=== PATIENT | female | born 1945 | race Two or more races ===

== ENCOUNTER 2018-02-24 11:07 | Inpatient (IN) | payer MEDICARE, MEDICAID ==
[~2018-02-24] VITALS: Ht 154.9 cm; Wt 81.6 kg
--- NOTE | 2018-02-24 11:11 | NUR ---
PT BIB FAMILY MEMBER C/O MIDSTERNAL CHEST PAIN RADIATING TO UPPER BACK. PT ON MONITOR IN BED 11. WILL CONTINUE TO MONITOR.
--- NOTE | 2018-02-24 11:40 | NUR ---
PHLEB AT BEDSIDE FOR LABS
[2018-02-24 11:47] LABS: BASOPHILS % (AUTO) 0.7 % (0.0-2.0); EOSINOPHILS % (AUTO) 1.3 % (0.0-6.0); HEMATOCRIT 37 % (33-45); HEMOGLOBIN 12.6 g/dL (11.5-14.8); LYMPHOCYTES # (AUTO) 1.3 /CMM (0.8-4.8); LYMPHOCYTES % (AUTO) 23.3 % (20.0-44.0); MEAN CORPUSCULAR HGB CONC 34 g/dl (31.0-36.0); MEAN CORPUSCULAR VOLUME 87 fL (82-100); MONOCYTES # (AUTO) 0.5 /CMM (0.1-1.30); MONOCYTES % (AUTO) 8.6 % (2.0-12.0); NEUTROPHILS # (AUTO) 3.6 /CMM (1.8-8.9); NEUTROPHILS % (AUTO) 66.1 % (43.0-81.0); PLATELET COUNT (AUTO) 261 /CMM (150-450); RED BLOOD CELL COUNT(AUTO) 4.28 MIL/uL (4.0-5.2); WHITE BLOOD COUNT (AUTO) 5.5 K/uL (4.3-11.0)
[2018-02-24 11:55] LABS: CALCIUM, SERUM 10.2 mg/dL (8.5-10.1); CARBON DIOXIDE 30 mmol/L (21-32); CHLORIDE 103 mmol/L (98-107); CREATININE 0.6 mg/dL (0.6-1.3); GLUCOSE 113 mg/dL (74-106); POTASSIUM 4.1 mmol/L (3.5-5.1); SODIUM SERUM 140 mmol/L (136-145); UREA NITROGEN, BLOOD 15 mg/dL (7-18)
--- NOTE | 2018-02-24 12:20 | NUR ---
CALLED [facility] FOR THIS PATIENT
--- NOTE | 2018-02-24 12:52 | NUR ---
CALLED NURSING SUP REQUESTED TELE BED FOR THIS PATIENT
[2018-02-24] MEDS ORDERED: CARV12.52 PO (13:51)
[2018-02-24] MEDS ORDERED: ROSU40TA PO (13:51)
[2018-02-24] MEDS ORDERED: CHOL200026 PO (13:51)
[2018-02-24] MEDS ORDERED: VALS1TAB4 PO (13:51)
--- NOTE | 2018-02-24 14:18 | NUR ---
GAVE REPORT TO ALVIN CONDE FOR NEY
--- NOTE | 2018-02-24 15:15 | NUR ---
PRODUCT SAFETY SPECIALIST NOTES RECEIVED PATIENT ALERT, ORIENTED X4 [place] SPEAKING. PATIENT DENIES ANY PAIN OR DISCOMFORT. PATIENT PLACED ON TELE SINUS RHYTHM. PATIENT ORIENTED TO ROOM. CALL LIGHT WITHIN REACH. DR. BABAR MALDONADO MADE AWARE OF PATIENTS ARRIVAL. AWAITING ORDERS WILL CONTINUE TO MONITOR.
[2018-02-24 16:00] VITALS: BP 128/73
[2018-02-24] MEDS ORDERED: ONDANSETRON HCL/PF 4 MG/2 ML VIAL IVP PRN (17:30)
[2018-02-24] MEDS ORDERED: ACETAMINOPHEN 325 MG TABLET PO PRN (17:30)
[2018-02-24] MEDS ORDERED: Z GUARD REMEDY 2 OZ OINT TP PRN (17:30)
[2018-02-24] MEDS ORDERED: ENOXAPARIN SODIUM 40 MG/0.4 ML DISP.SYRIN SQ SCH (17:30)
[2018-02-24] MEDS: IV NS 0.9% 1,000 ML IV PRN (17:55)
--- NOTE | 2018-02-24 18:27 | NUR ---
APPLICATION SYSTEMS ARCHITECT NOTES PATIENT AWAKE IN BED AND REMAINS IN STABLE CONDITION. NO C/O PAIN OR DISCOMFORT. PERIPHERAL IV RIGHT HAND INTACT AND PATENT. BED IN LOW LOCK POSITION. CALL LIGHT WITHIN REACH. WILL ENDORSE TO ONCOMING SHIFT.
--- NOTE | 2018-02-24 19:20 | NUR ---
BROADCAST DIRECTOR OPERATIONS OPENING NOTES RECEIVED PATIENT RESTING IN BED, ALERT, ORIENTED X4, [place] SPEAKING. PATIENT DENIES ANY PAIN OR DISCOMFORT. NO ACUTE DISTRESS NOTED. PATIENT ON TELE MONITORING WITH SINUS RHYTHM 82. BRP/AMBULATORY TOLERATED. IV ACCESS TO RIGHT HAND, INTACT PATENT, RUNNING WITH IVF ORDERED. BED IN LOW LOCKED POSITION. CALL LIGHT WITHIN REACH. INSTRUCTED THE PT TO CALL FOR HELP USING CALL LIGHT, VERBALIZED UNDERSTANDING. WILL CONTINUE TO MONITOR CLOSELY ACCORDINGLY.
[2018-02-24 20:00] VITALS: BP 154/87
[2018-02-24] MEDS ORDERED: ATORVASTATIN 40 MG TABLET PO SCH (22:00)
[2018-02-25] VITALS: BP 158/77
[2018-02-25 00:05] VITALS: BP 158/77
[2018-02-25 04:00] VITALS: BP 149/83
[2018-02-25] MEDS: IV NS 0.9% 1,000 ML IV PRN (06:19)
--- NOTE | 2018-02-25 06:26 | NUR ---
LEAD RECOVERER CLOSING NOTES PATIENT SLEPT INTERMITTENTLY AT NIGHT. ALERT, ORIENTED X4, [place] SPEAKING. PATIENT DENIES ANY PAIN OR DISCOMFORT. NO ACUTE DISTRESS NOTED. PATIENT ON TELE MONITORING WITH SINUS RHYTHM 77. NO C/O CHEST PAIN VERBALIZED AT NIGHT. BRP/AMBULATORY TOLERATED. IV ACCESS TO RIGHT HAND, INTACT PATENT, RUNNING WITH IVF ORDERED. BED IN LOW LOCKED POSITION. CALL LIGHT WITHIN REACH. WILL ENDORSE TO AM RN.
[2018-02-25 06:34] LABS: BASOPHILS % (AUTO) 0.6 % (0.0-2.0); EOSINOPHILS % (AUTO) 1.9 % (0.0-6.0); HEMATOCRIT 36 % (33-45); HEMOGLOBIN 12.2 g/dL (11.5-14.8); LYMPHOCYTES # (AUTO) 2.1 /CMM (0.8-4.8); LYMPHOCYTES % (AUTO) 35.1 % (20.0-44.0); MEAN CORPUSCULAR HGB CONC 34 g/dl (31.0-36.0); MEAN CORPUSCULAR VOLUME 89 fL (82-100); MONOCYTES # (AUTO) 0.5 /CMM (0.1-1.30); MONOCYTES % (AUTO) 8.9 % (2.0-12.0); NEUTROPHILS # (AUTO) 3.2 /CMM (1.8-8.9); NEUTROPHILS % (AUTO) 53.5 % (43.0-81.0); PLATELET COUNT (AUTO) 248 /CMM (150-450); RED BLOOD CELL COUNT(AUTO) 4.12 MIL/uL (4.0-5.2)
[2018-02-25 06:38] LABS: ALANINE AMINOTRANSFERASE 29 U/L (12-78); ALBUMIN 3.2 g/dL (3.4-5.0); ALKALINE PHOSPHATASE 94 U/L (46-116); ASPARTATE AMINOTRANSFERASE 18 U/L (15-37); BILIRUBIN,TOTAL 0.3 mg/dL (0.2-1.0); CALCIUM, SERUM 9.8 mg/dL (8.5-10.1); CARBON DIOXIDE 31 mmol/L (21-32); CHLORIDE 107 mmol/L (98-107); CREATININE 0.6 mg/dL (0.6-1.3); GLUCOSE 115 mg/dL (74-106); MAGNESIUM 1.6 mg/dL (1.8-2.4); PHOSPHORUS 2.9 mg/dL (2.5-4.9); SODIUM SERUM 144 mmol/L (136-145); UREA NITROGEN, BLOOD 11 mg/dL (7-18)
[2018-02-25 06:45] LABS: CHOLESTEROL 172 mg/dL (<200); HDL CHOLESTEROL 48 mg/dL (40-60); LDL 99 mg/dL (0-99); THYROID STIMULATING HORMONE 6.545 uIU/mL (0.358-3.74); TRIGLYCERIDES 121 mg/dL (30-150)
[2018-02-25 06:49] LABS: IRON, SERUM 66 ug/dl (50-175); TOTAL IRON BINDING CAPACITY 259 ug/dl (250-450)
--- NOTE | 2018-02-25 07:51 | NUR ---
RN NOTE OPENING NOTES: PATIENT IN BED. ALERT AND ORIENTED X4, [place] SPEAKING. PATIENT DENIES ANY PAIN OR DISCOMFORT. NO ACUTE DISTRESS AT THE MOMENT. PATIENT ON TELE MONITORING WITH SINUS RHYTHM 78. IV ACCESS RIGHT HAND #20G WITH NS @75ML/HR. BED IN LOCKED POSITION, CALL LIGHT WITHIN REACH. WILL CONT TO MONITOR PATIENT.
[2018-02-25 08:00] VITALS: BP 160/85
[2018-02-25] MEDS ORDERED: REGADENOSON 0.4 MG/5 ML DISP.SYRIN IVP ONE (08:30)
[2018-02-25] MEDS: Magnesium 1GM/D5W 100ML PREMIX 100 ML IV SCH ×2 (08:40→13:13)
[2018-02-25 08:41] VITALS: BP 160/85
[2018-02-25] MEDS ORDERED: ASPIRIN EC 81 MG TABLET.DR PO SCH (09:00)
[2018-02-25] MEDS ORDERED: VALSARTAN 80 MG TABLET PO SCH (09:00)
[2018-02-25] MEDS ORDERED: CARVEDILOL 12.5 MG TABLET PO SCH (09:00)
[2018-02-25] MEDS ORDERED: CHOLECALCIFEROL 1,000 UNIT TABLET (VIT D3) PO SCH (09:00)
[2018-02-25] MEDS ORDERED: ASPI-605 PO (14:19)
--- NOTE | 2018-02-25 17:34 | NUR ---
COUNTER WEIGHER NOTE: PATIENT LEFT THE UNIT AT 1650 WITH DAUGHTER AND PRIVATE CAR. PATIENT RECEIVED DISCHARGE ORDER FROM RACQUET MAKER. MEDICALLY STABLE. V/S STABLE. BELONGINGS SIGNED FOR. DISCHARGE PAPERS SIGNED. EXIT CARE PAPERS EXPLAINED TO PATIENT'S DAUGHTER. SKIN ASSESSMENT COMPLETE, INTACT. TOOK WRIST BAND AND D/C IV HEP LOCK.
== END 2018-02-25 16:45 | disposition home or self-care (01) | DRG 206 ==
LOC: ER 11:14 → TELE 13:36 → MED 02-25 09:36
PROVIDERS: ADMIT Nurse Practitioner Acute Care; ATTEND Nurse Practitioner Acute Care
DX: M94.0 Chondrocostal junction syndrome [Tietze] (principal); E11.9 Type 2 diabetes mellitus without complications; E78.5 Hyperlipidemia, unspecified; I10 Essential (primary) hypertension; D64.9 Anemia, unspecified; E83.42 Hypomagnesemia; Z87.891 Personal history of nicotine dependence
CPT/HCPCS: 36415; 71045-TC; 80048-TC; 80053-TC; 80061-TC; 82728-TC; 83540-TC; 83735-TC; 84100-TC; 84443-TC; 84484-TC; 85025-TC; 87081-TC; 93307-TC; A4606; A9502; G0378; J1650; J2785; J3475; J7030; Z7610